=== PATIENT | male | born 1945 | race Caucasian/White ===

== ENCOUNTER 2016-07-21 17:17 | Inpatient (IN) | payer OTHER ==
[~2016-07-21] VITALS: Ht 167.6 cm; Wt 105.4 kg
--- NOTE | ~2016-07-21 | PR ---
[place], [place] PROGRESS NOTE NAME: JM MOSLEY I UNIT #: [id number] ROOM: 525 DOCTOR: BREANNE FIGUEROA DO BIRTHDATE: [birth year] DOS: 07/30/2016 DAILY REPORT NOTE SUBJECTIVE: A 71-year-old male seen at bedside today. He is status post I and D, washout and revision of right total hip. He does have a suspected deep infection, although his cultures today are negative. He had WBCs greater than 14,000 and clinically we are treating him regarding an infected right total hip. He has significantly improved since the time of surgery. He has had no additional development of redness. His pain has markedly improved. He has been ambulating the hallway. PHYSICAL EXAMINATION: VITAL SIGNS: Blood pressure 150/73, pulse rate 88, temp 98.8. INTERVAL HISTORY: The patient is pleasant, cooperative, alert. His sister is at the bedside. He tells me he did walk today. He earlier sat in the chair for about 2 hours and just sat at the bedside for his meal. Right hip incision showed pro intact. Marked improvement in cellulitic appearance and changes, some induration present. No drainage, no fluctuance, no evidence of hematoma or seroma. Thigh and calf nontender. Circulation, motor intact. LABORATORY DATA: Today's labs, WBC 12.4, hemoglobin 9.7, hematocrit 29.5, platelets 415,000. Glucose 169, creatinine 1.54, EGFR 45. Routine culture, final is negative. Anaerobic culture, final is negative. IMPRESSION: Infected right total hip arthroplasty. PLAN: Discussed with the patient plus plan of care. We are still suspecting deep infection based on the clinical presentation and surgical findings and with the fact that the patient had been on IV antibiotic treatment prior to cultures, I have discussed the case with ID. They did change his rifampin dose accordingly. He remains on IV antibiotic therapy, has his PICC line in place, pending long-term skilled/custodial placement for long-term IV antibiotic therapy. [place], [place] PROGRESS NOTE NAME: JM MOSLEY I UNIT #: [id number] ROOM: 525 DOCTOR: BREANNE FIGUEROA DO BIRTHDATE: [birth year] BREANNE FIGUEROA DO CM:PNTRANS [id number] BREANNE FIGUEROA DO 08/01/16 0029 interface
--- NOTE | ~2016-07-21 | PR ---
[place], [place] PROGRESS NOTE NAME: JM MOSLEY I UNIT #: [id number] ROOM: 525 DOCTOR: JORGE SAGE,JUNE BIRTHDATE: [birth year] DOS: 07/30/2016 SUBJECTIVE: The patient is being followed for possible right prosthetic joint infection. He has a right total hip replacement. All of his cultures including from the hip are negative. Blood cultures are also negative. He is alert and oriented, tolerating the antibiotics. Denies fevers, chills, nausea, vomiting or diarrhea. No rash or itch. No cough or shortness of breath. Does still have pain in the right hip. He has been afebrile. VITAL SIGNS: Showed temperature 98.8, pulse 88, respirations 20, BP 150/73. LABORATORY DATA: Show WBC is 12.4, platelets 415, eosinophils elevated at 10.1, BUN 19, creatinine has improved somewhat 1.54, sodium 141. LFTs within normal limits. Urine for eosinophils is pending. CURRENT MEDICATIONS: Include Ecotrin, linezolid, rifampin, [place], cefepime, vitamin D, Seroquel, Lipitor, Paxil, Zestril, Esidrix, Vistaril, Humalog, Zofran. PHYSICAL EXAMINATION: GENERAL: A 71-year-old obese male in no acute distress. HEAD, EYES, EARS, NOSE AND THROAT: Normocephalic, no thrush. LUNGS: Clear to auscultation bilaterally. Respirations even and unlabored. HEART: Regular rhythm. No murmur appreciated. ABDOMEN: Soft, nontender. EXTREMITIES: Right hip incision is well approximated. Scant cold bloody serosanguineous discharge. No odor or cellulitis. +2 to 3 edema bilateral lower extremities. PICC in place right upper extremity. Dressing dry and intact. 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 PLAN: At this point, we will continue the linezolid and cefepime. I would recommend changing him over daptomycin. Upon discharge, I did speak with the pharmacist here yesterday and it is not available inhouse. Continue rifampin as well. Case discussed with Dr. Tracy Gupta. Continue to monitor the creatinine and followup on the urine for eosinophils. The vancomycin was changed to linezolid due to a spike in the creatinine. JUNE CHU PATEL [place], [place] PROGRESS NOTE NAME: JM MOSLEY I UNIT #: [id number] ROOM: [facility] DOCTOR: JORGE SAGE BIRTHDATE: [birth year] TRACY GUPTA MD CM:PNTRANS [phone] JORGE SAGE 07/30/16 1849 interface
--- NOTE | ~2016-07-21 | PR ---
[place], [place] PROGRESS NOTE NAME: JM MOSLEY I UNIT #: [id number] ROOM: 525 DOCTOR: CANDY TOBIN,TRACY Gastelum BIRTHDATE: [birth year] DOS: 07/29/2016 ADDENDUM I agree with above plans as described. We will make adjustments and follow the patient up clinically. TRACY GUPTA MD CM:PNTRANS [phone] TRACY GUPTA MD 08/01/16 1532 interface
--- NOTE | ~2016-07-21 | PR ---
[place], [place] PROGRESS NOTE NAME: JM MOSLEY I UNIT #: [id number] ROOM: 525 DOCTOR: BREANNE FIGUEROA DO BIRTHDATE: [birth year] DOS: 07/26/2016 SUBJECTIVE: This 71-year-old male seen this morning regarding a followup right hip. I did see the patient the other day. As noted, he was evaluated and recommendations for continuation of IV antibiotic and planning washout i.e., I and D right hip with polyethylene exchange. The patient's condition has been stable, afebrile. Cultures are pending. PHYSICAL EXAMINATION: GENERAL: The patient is stable. VITAL SIGNS: Temp 98.4. No temp elevations. Blood pressure 117/60, pulse rate 86. EXTREMITIES: Right hip shows still induration and redness. There is improvement; however, there has been a scant area that is now opened through the mid portion of the incision showing scant amount of bloody serous drainage, nothing active at this time. Minimal fluctuance is present through this portion of the incision. Induration present. Thigh and calf nontender. LABORATORY DATA: WBC 10.6, hemoglobin 10.1, hematocrit 31.6, platelet 521,000. IMPRESSION: 1. Cellulitis, right hip, status post right total hip arthroplasty. 2. Draining postoperative wound, right hip. 3. Possible deep infection, right total hip arthroplasty. PLAN: We discussed with the patient plus plan of care again as noted. I discussed with the patient. I went ahead seen him 2 days ago regarding plan of care and treatment. At that time, I also discussed with him the procedure, benefits versus complications. He is aware of the procedure for washout polyethylene exchange, pending culture. The fluid analysis is previously noted; however, cultures again pending. He is maintained on vancomycin and Zosyn. I have discussed with the patient. Certainly, we will repeat intraoperative cultures today. If the patient ends up having a deep infection and after washout polyethylene exchange, if after a period of time the incision and wound does not improve or he persists with drainage, he may need explantation. This is explained in detail. He is aware that would require additional treatment, hospitalization, extended prison stay, IV antibiotics, etc., that would also require placement of a spacer, repeat additional surgeries. He does understand his condition may require multiple surgeries for resolution. He does understand medical risks and surgical risks including continued drainage, possible deep chronic infection, surgical bleeding, DVT, PE, nerve and artery damage, cardiorespiratory including from surgery. The patient will require a PICC line. We will continue to follow the patient closely. Obtain new cultures intraoperatively. The patient does understand failure risk and rate. He does also understand mechanical issues now that he is having another surgery or possible additional multiple surgeries regarding mechanical issues or problems within hip. After having answered his questions to his satisfaction, he does elect to proceed with surgery as recommended. Informed consent obtained. [place], [place] PROGRESS NOTE NAME: JM MOSLEY I UNIT #: [id number] ROOM: [facility] DOCTOR: BREANNE FIGUEROA DO BIRTHDATE: [birth year] BREANNE FIGUEROA DO CM:JESSENIA [id number] BREANNE FIGUEROA DO 07/27/16 0817 interface
--- NOTE | ~2016-07-21 | PR ---
[place], [place] PROGRESS NOTE NAME: JM MOSLEY I UNIT #: [id number] ROOM: 525 DOCTOR: BREANNE FIGUEROA DO BIRTHDATE: [birth year] DOS: 07/28/2016 SUBJECTIVE: This 71-year-old male seen at the bedside. He is status post washout and I and D and revision right hip for suspected deep infection. I did get a call from lab that initial cultures did show gram-positive cocci with ID pending. The patient has remained on antibiotic as noted per Medicine and Infectious Disease. Infectious Disease consult was appreciated. The patient's pain is improving, still at times moderate. He is out of bed walking. No fever or chills. PHYSICAL EXAMINATION: VITAL SIGNS: Blood pressure 133/50, pulse rate 88, temperature 98.3. GENERAL: The patient is pleasant, cooperative, alert, in no distress. EXTREMITIES: Right hip incision shows still some redness and erythema, but significantly improved since preop. [place] intact. Mild induration, but no fluctuance. No drainage from the incision site. Calf nontender. Circulation, motor intact. LABORATORY DATA: The patient's a.m. lab: WBC 11.1, hemoglobin 7.8, hematocrit 24.5. Glucose 244, creatinine 1.91, EGFR 35. Cultures pending. IMPRESSION: Infected right total hip arthroplasty. PLAN: Discussed with the patient clinical findings and plan of care. I did get a call from lab as noted with gram-positive cocci identified; however, final cultures are pending. I have discussed with nursing to please contact ID as I did add to the antibiotic regimen rifampin but do want to be sure that it is the appropriate dose. Also, he has postop blood loss anemia we will go ahead and type and cross and transfuse 2 units and plan for a long-term IV care and skilled treatment. ADDENDUM It was incorrectly stated that the patient had gram-positive cocci on his culture today. Those are negative and still pending. [place], [place] PROGRESS NOTE NAME: JM MOSLEY I UNIT #: [id number] ROOM: 525 DOCTOR: BREANNE FIGUEROA DO BIRTHDATE: [birth year] BREANNE FIGUEROA DO CM:PNDELMA [id number] BREANNE FIGUEROA DO 08/01/16 1540 interface
--- NOTE | ~2016-07-21 | PR ---
[place], [place] PROGRESS NOTE NAME: JM MOSLEY I UNIT #: [id number] ROOM: 525 DOCTOR: JORGE SAGEJUNE BIRTHDATE: [birth year] DOS: SUBJECTIVE: The patient is being followed for a right hip infection. He has a total hip arthroplasty in place. He is status post a washout. All of the cultures are negative. His blood cultures are also negative. He remains on cefepime, vancomycin and rifampin. He continues to have pain in the right hip. Denies any fevers, chills, nausea, vomiting or diarrhea. No cough or shortness of breath. No rash or itch. LABORATORY DATA: Show WBCs 10.7, platelets 392. BUN 24, creatinine 1.66, creatinine is up from 1.04, it was actually 0.96 at the time of admission, it has peaked at 1.91 yesterday. PHYSICAL EXAMINATION: VITAL SIGNS: Show temperature 97.7, pulse 71, respirations 20, BP 143/51. GENERAL: A 71-year-old male, in no acute distress. HEAD, EYES, EARS, NOSE AND THROAT: Normocephalic, no thrush. LUNGS: Clear to auscultation bilaterally. Respirations even and unlabored. HEART: Regular rhythm. No murmur appreciated. ABDOMEN: Soft, obese, nontender. EXTREMITIES: No edema. Right hip incision is well approximated with pro. It shows signs of resolving erythema, peeling skin. Skin is otherwise warm, dry and intact, free of rashes. PICC in the right upper extremity. Dressing is dry and intact. No signs of phlebitis. ASSESSMENT: Right hip infection with concern for possible prosthetic joint infection, status post washout with retention of the prosthesis. He is to continue the vancomycin and cefepime as well as rifampin; however, he does have elevation of his creatinine with more likely source being the vancomycin. We will check a urine for eosinophils. He does have some peripheral eosinophilia of 1.0 today. Change the vancomycin to daptomycin, monitor the metabolic panel and check urine for eosinophils. Case was discussed with Dr. Tracy Gupta. JUNE CHU PATEL [place], [place] PROGRESS NOTE NAME: JM MOSLEY I UNIT #: [id number] ROOM: [facility] DOCTOR: JORGE SAGE,JUNE BIRTHDATE: [birth year] TRACY GUPTA MD CM:JESSENIA [phone] JORGE SAGE 07/29/162021 interface
--- NOTE | ~2016-07-21 | O ---
[place], [place] OPERATIVE NOTE NAME: JM MOSLEY I UNIT #: [id number] ROOM: 525 DOCTOR: JONATHAN SHERIDAN DO BIRTHDATE: [birth year] DOS: 07/26/2016 PREOPERATIVE DIAGNOSES: 1. Wound drainage status post right total hip arthroplasty. 2. Cellulitis, right hip. POSTOPERATIVE DIAGNOSES: 1. Wound drainage status post right total hip arthroplasty. 2. Cellulitis, right hip. PROCEDURES: 1. Incision and drainage, right hip (skin, subcutaneous tissue, deep fascia, and muscle). 2. Revision right total hip arthroplasty. ANESTHESIA: General. SURGEON: Jonathan Sheridan DO ESTIMATED BLOOD LOSS: See operative report. SPECIMENS: Fluid culture. BED BUG EXTERMINATOR: Sivtlana Joshua. INDICATION FOR OPERATION: This is a 71-year-old male seen today in regards to cellulitic changes, right hip, with drainage. Please see consult and progress note regarding additional patient's clinical history, findings, and indications for procedure. A decision was for the above noted procedure as noted. Benefits, risks, complications were discussed with the patient. Informed consent obtained. DESCRIPTION OF PROCEDURE: With the patient being identified and the operative site marked, he was taken to the operative suite, transferred to position supine. He was administered a general anesthetic by the Department of Anesthesia. After adequate anesthetic, the patient was positioned in the lateral decubitus position, left side down, right hip up, down leg was padded, axillary roll was placed. There was just scant active drainage at this point after wiping with alcohol, and therefore prior to formal prepping and draping, did prep the surgical site, placed an Ioban, prepped the rest of the leg. At this point, we cared for with regular prepping and draping. A #10 blade was used to make a small stab incision through the area that had opened slightly. Copious amounts of fluid were suctioned. A 20 mL syringe was placed in fluid suction, placed into aerobic and anaerobic culture tube in sterile container, and sent for fluid analysis and culture. The remaining incision was opened up. Marked amount of fluid noted within the superficial and deep soft tissue. The fascia had opened up deep. There was no necrotic tissue, but all tissue was debrided including skin, subcutaneous tissue, fascia, and some muscle where there was quite a bit of fibrinous tissue deep and superficial. A curette was used to scrape the superficial subcutaneous fat and deeper tissue. Some of the [place], [place] OPERATIVE NOTE NAME: JM MOSLEY I UNIT #: [id number] ROOM: [facility] DOCTOR: CAROLINA WOLFFJONATHAN BIRTHDATE: [birth year] fascia at the very edge of the prior closure was cleaned up as well. Old sutures were removed. At this point, copious irrigation was done of the entire hip including deep hip. The remaining abductor tendon was opened up through its prior incision to expose the hip. The hip was dislocated by bringing the leg anterior in a sterile bag and bringing the ball far and the ball was removed. The acetabulum was exposed, and the polyethylene removed without interruption of the acetabular component. Copious irrigation at this point was done. We had used separate instrumentation at this point. All the gloves were changed, clean dressings placed over top including suction Bovie exchanged. At this point, Bactisure was used for copious irrigation followed by saline of the entire hip joint deep tissue and exposed portion of the trunnion of the femoral component and acetabular shell of the acetabular component. A new acetabular shell was placed in 6+3 high wall liner, impacted, found to be locked into place. Trial reductions were then done, and a 36+6 was found to have the best stability and equalization of limb length to the down leg. This showed low tendency for dislocation with the hip in the extended, adducted, externally rotated in the bag, abduction internal rotation with the hip flexed at 80 degrees showed a tight check with the posterior capsule, only about 45 degrees internal rotation noted. Trial component was dislocated and removed off the trunnion. The hip was copiously irrigated once again from the 36+3 ball placed on the trunnion impacted and reduced. Anatomic reduction was noted. The hip was very stable as previously tested. The hip was copiously irrigated. One gram of vancomycin powder was placed deep into the soft tissue and into the hip joint. A Hemovac drain was placed distal to the incision, and the hip was closed in layers. Abductor and vastus closed with #1 Vicryl. #1 Vicryl was used to close the tensor fascia latoya. #1 Vicryl was used to close also deep subcutaneous tissues to minimize the space. 3-0 Monocryl used for subcutaneous closure and por used on skin. Sterile dressing applied, Xeroform, 4 x 4s, ABD, and paper tape. The patient tolerated the procedure well. All sponge and needle counts were correct. The patient was transferred to hospital cart and to Recovery in stable and satisfactory condition. JONATHAN SHERIDAN DO CM:OPRECORD:OPERATIVE NOTE [id number] JONATHAN SHERIDAN DO 07/27/16 0847 interface
--- NOTE | ~2016-07-21 | PR ---
[place], [place] PROGRESS NOTE NAME: JM MOSLEY I UNIT #: [id number] ROOM: 525 DOCTOR: CANDY TOBIN,TRACY Gastelum BIRTHDATE: [birth year] DOS: 07/30/2016 I agree with the above plans as described and continue to follow the patient clinically and make adjustments accordingly. TRACY GUPTA MD CM:PNTRANS [phone] TRACY GUPTA MD 07/30/16 1854 interface
--- NOTE | ~2016-07-21 | CON ---
[place], [place] REPORT OF CONSULTATION NAME: JM MOSLEY I UNIT #: [id number] ROOM: 525 DOCTOR: BREANNE FIGUEROA DO BIRTHDATE: [birth year] DOS: 07/24/2016 Please include progress note today from ANTONY Osullivan as part of and inclusive of this consultation. HISTORY OF PRESENT ILLNESS: This is a 71-year-old male, 3 weeks status post right total hip arthroplasty. The patient was admitted to [facility] after having a fall at home. It was noted upon ER evaluation that he had induration, redness about the incision. There has been no drainage. He was admitted and placed on IV antibiotic. The patient did have a fall at home. However, x-rays and CT did not show any fracture. There was question of fluid collection subcutaneous within the region of the surgery at the right hip. There was no dislocation of the right hip prosthesis. Upon initial evaluation and admission, the patient's WBC was 15.2, hemoglobin 10.7, hematocrit 33.3. This has normalized to a CBC done on 07/23/2016 to 9.9 WBC. The patient has been afebrile. As noted, the patient was seen by ANTONY Osullivan earlier today. An aspirate was done consisting of bloody fluid that is noted. PHYSICAL EXAMINATION: VITAL SIGNS: Reviewed. Temperature 98.3, blood pressure 145/60, pulse rate 83. PELVIC: Right hip exam shows induration, erythema. There is no drainage from the incision. There is no fluctuance of the thigh. There is some peeling of the skin consistent with at least superficial cellulitic changes. Anterior medial thigh is nontender. Distal circulation intact. There is no shortening or malrotation of the limb. FLUID STUDIES: Fluid studies from today's aspirate, wbc 14,910 with 89% neutrophils, 5% lymphocytes. IMPRESSION: 1. Cellulitis, right hip. 2. Status post right total hip arthroplasty. PLAN: Plan was discussed with the patient plus plan of care. The total cell count is not definitive of infection; however, with the reference range of 10,000-27,000, I will have to certainly keep an eye on it or certainly if there is an area that starts to drain. At this time, the incision is closed. It still remains quite indurated. This may be from a postsurgical seroma; however, certainly there is a concern for superficial and/or deep underlying infection. I have discussed with the patient: I will see what the initial culture results are and make a decision regarding possible washout I and D or considering possible explantation and long-term antibiotic. The patient does understand and all of his questions have been answered. [place], [place] REPORT OF CONSULTATION NAME: MELANYJM HOLLINS B[place] UNIT #: [id number] ROOM: [facility] DOCTOR: BREANNE FIGUEROA DO BIRTHDATE: [birth year] BREANNE FIGUEROA DO CM:CONSTR:REPORT OF CONSULTATION 1542 07/25/16 0655 interface
[2016-07-21 17:21] VITALS: BP 147/73
[2016-07-21] MEDS ORDERED: PAROXETINE HCL40 MG PO (17:26)
[2016-07-21] MEDS ORDERED: METFORMIN1000 MG PO (17:27)
[2016-07-21] MEDS ORDERED: QUETIAPINE FUM200 M2 PO (17:27)
[2016-07-21] MEDS ORDERED: LISINOPRIL-HYDR1 TA1 PO (17:27)
[2016-07-21] MEDS ORDERED: VICODIN 5-3001 EACH PO (17:29)
[2016-07-21] MEDS ORDERED: HUMULIN R500 UNIT/1 SQ (17:30)
[2016-07-21] MEDS ORDERED: HYDROXYZINE HCL25 MG PO (17:31)
[2016-07-21] MEDS ORDERED: CEPHALEXIN500 M1 PO (17:31)
[2016-07-21] MEDS ORDERED: LIPITOR80 MG PO (17:32)
[2016-07-21 18:34] LABS: BASO % 0.3 % (0.0-1.0); EOS # 0.2 10*3/uL (0.0-0.4); EOS % 1.2 % (1.0-4.0); HEMATOCRIT 33.3 % (42.0-52.0); HEMOGLOBIN 10.7 g/dl (14.0-18.0); IG # 0.1 10*3/uL (0.0-0.1); LYMPH # 1.1 10*3/uL (1.3-4.4); LYMPH % 7.5 % (27.0-41.0); MEAN CELL VOLUME 84.7 fl (80.0-94.0); MEAN CORPUSCULAR HGB 27.2 pg (27.0-31.0); MEAN CORPUSCULAR HGB CONC 32.1 g/dl (33.0-37.0); MEAN PLATELET VOLUME 8.7 fl (9.6-12.3); MONO # 1.3 10*3/uL (0.1-1.0); MONO % 8.6 % (3.0-9.0); NEUT # 12.4 10*3/uL (2.3-7.9); NEUT % 81.9 % (47.0-73.0); PLATELET COUNT AUTOMATED 599 10*3/uL (130-400); RED BLOOD COUNT 3.93 10*6/uL (4.50-5.90); RED CELL DISTRI WIDTH 14.7 % (0-14.5); WHITE BLOOD COUNT 15.2 10*3/uL (4.8-10.8)
[2016-07-21 18:38] VITALS: BP 138/78
[2016-07-21 18:45] LABS: PROTHROMBIN TIME 10.7 SECONDS (9.0-12.4)
[2016-07-21 18:51] LABS: ALBUMIN 2.9 gm/dl (3.1-4.5); ALKALINE PHOSPHATASE 121 U/L (45-117); BILIRUBIN, TOTAL 1.3 mg/dl (0.2-1.0); BUN 28 mg/dl (7-24); CARBON DIOXIDE 28 mmol/L (21-32); CHLORIDE 103 mmol/L (98-107); CKMB 0.6 ng/ml (0.5-3.6); CPK 151 U/L (39-308); EST GLOM FILT AFRICAN AMERICAN > 60 ml/min; GLUCOSE 124 mg/dL (65-99); MAGNESIUM 2.2 mg/dL (1.5-2.1); POTASSIUM 4.5 mmol/L (3.5-5.1); SGOT/AST 13 IU/L (3-35); SGPT/ALT 24 U/L (12-78); SODIUM 139 mmol/L (136-145); TOTAL PROTEIN 7.3 gm/dL (6.4-8.2); TROPONIN I < 0.015 ng/ml (<0.045)
[2016-07-21 19:19] VITALS: BP 127/52
[2016-07-21 21:00] VITALS: BP 109/57
[2016-07-22 00:25] VITALS: BP 124/62
[2016-07-22 04:37] VITALS: BP 119/78
[2016-07-22 07:30] LABS: BASO # 0.1 10*3/uL (0.0-0.1); BASO % 0.4 % (0.0-1.0); EOS # 0.3 10*3/uL (0.0-0.4); HEMATOCRIT 31.7 % (42.0-52.0); IG # 0.1 10*3/uL (0.0-0.1); LYMPH # 0.8 10*3/uL (1.3-4.4); LYMPH % 6.4 % (27.0-41.0); MEAN CELL VOLUME 85.9 fl (80.0-94.0); MEAN CORPUSCULAR HGB 27.1 pg (27.0-31.0); MEAN CORPUSCULAR HGB CONC 31.5 g/dl (33.0-37.0); MEAN PLATELET VOLUME 8.8 fl (9.6-12.3); MONO # 1.3 10*3/uL (0.1-1.0); MONO % 10.1 % (3.0-9.0); NEUT # 10.4 10*3/uL (2.3-7.9); NEUT % 80.6 % (47.0-73.0); PLATELET COUNT AUTOMATED 600 10*3/uL (130-400); RED BLOOD COUNT 3.69 10*6/uL (4.50-5.90); RED CELL DISTRI WIDTH 14.7 % (0-14.5); WHITE BLOOD COUNT 12.9 10*3/uL (4.8-10.8)
[2016-07-22 07:50] LABS: HEMOGLOBIN A1c 6.7 % (4.8-5.6)
[2016-07-22 07:58] LABS: ALBUMIN 2.7 gm/dl (3.1-4.5); BILIRUBIN, TOTAL 1.3 mg/dl (0.2-1.0); BUN 23 mg/dl (7-24); CARBON DIOXIDE 28 mmol/L (21-32); CHLORIDE 105 mmol/L (98-107); CHOLESTEROL 101 mg/dL (<200); EST GLOM FILT AFRICAN AMERICAN > 60 ml/min; GLUCOSE 155 mg/dL (65-99); HDL CHOLESTEROL 36 mg/dl (40-60); LDL CHOLESTEROL 48 mg/dL (9-159); MAGNESIUM 1.9 mg/dL (1.5-2.1); PHOSPHOROUS 2.9 mg/dL (2.5-4.9); SGOT/AST 15 IU/L (3-35); SGPT/ALT 22 U/L (12-78); SODIUM 138 mmol/L (136-145); TRIGLYCERIDES 85 mg/dl (<150); VLDL CHOLESTEROL 17 mg/dL (6-40)
[2016-07-22 08:00] VITALS: BP 146/58
[2016-07-22 08:00] LABS: PROTHROMBIN TIME 10.7 SECONDS (9.0-12.4)
[2016-07-22 08:04] LABS: ALKALINE PHOSPHATASE 114 U/L (45-117); FREE T4 1.26 ng/dl (0.76-1.46); THYROID STIM HORMONE (HS) 0.782 uIU/ml (0.358-4.75)
[2016-07-22 08:06] LABS: VITAMIN D, 25-HYDROXY 6.7 ng/mL (30-100)
[2016-07-22 08:07] LABS: FOLIC ACID 14.63 ng/mL (>5.38)
[2016-07-22 12:00] VITALS: BP 121/74
[2016-07-22 16:00] VITALS: BP 146/80
[2016-07-22 17:06] LABS: BILIRUBIN NEGATIVE (NEGATIVE); BLOOD 1+ (NEGATIVE); CLARITY CLOUDY (CLEAR); COLOR YELLOW (YELLOW); GLUCOSE NEGATIVE (NEGATIVE); KETONE NEGATIVE (NEGATIVE); LEUKO ESTERASE TRACE (NEGATIVE); NITRITE NEGATIVE (NEGATIVE); PROTEIN TRACE (NEGATIVE); SPECIFIC GRAVITY 1.025 (1.005-1.030); UROBILINOGEN 0.2 E.U./dl (0.2-1.0)
[2016-07-22 17:25] LABS: BACTERIA 2+
[2016-07-22 17:26] LABS: URIC ACID CRYSTALS 3+
[2016-07-22 20:00] VITALS: BP 128/56
[2016-07-23 00:27] VITALS: BP 116/69
[2016-07-23 07:23] LABS: BASO # 0.1 10*3/uL (0.0-0.1); BASO % 0.5 % (0.0-1.0); EOS # 0.4 10*3/uL (0.0-0.4); EOS % 4.1 % (1.0-4.0); HEMATOCRIT 29.3 % (42.0-52.0); HEMOGLOBIN 9.3 g/dl (14.0-18.0); LYMPH % 9.7 % (27.0-41.0); MEAN CELL VOLUME 85.9 fl (80.0-94.0); MEAN CORPUSCULAR HGB 27.3 pg (27.0-31.0); MEAN CORPUSCULAR HGB CONC 31.7 g/dl (33.0-37.0); MEAN PLATELET VOLUME 8.7 fl (9.6-12.3); MONO % 10.2 % (3.0-9.0); NEUT # 7.4 10*3/uL (2.3-7.9); NEUT % 75.1 % (47.0-73.0); PLATELET COUNT AUTOMATED 459 10*3/uL (130-400); RED BLOOD COUNT 3.41 10*6/uL (4.50-5.90); RED CELL DISTRI WIDTH 14.8 % (0-14.5); WHITE BLOOD COUNT 9.9 10*3/uL (4.8-10.8)
[2016-07-23 07:49] LABS: BUN 17 mg/dl (7-24); CARBON DIOXIDE 28 mmol/L (21-32); CHLORIDE 108 mmol/L (98-107); EST GLOM FILT AFRICAN AMERICAN > 60 ml/min; GLUCOSE 178 mg/dL (65-99); POTASSIUM 3.9 mmol/L (3.5-5.1); SODIUM 142 mmol/L (136-145)
[2016-07-23 08:00] VITALS: BP 139/67
[2016-07-23 12:00] VITALS: BP 121/55
[2016-07-23 16:00] VITALS: BP 146/71
[2016-07-23 20:00] VITALS: BP 135/54
[2016-07-24] VITALS: BP 138/68
[2016-07-24 08:00] VITALS: BP 146/71
[2016-07-24 12:00] VITALS: BP 145/60
[2016-07-24 13:29] LABS: BODY FLUID RBC 75000 /uL
[2016-07-24 13:39] LABS: BODY FLUID TYPE SYNOVIAL; BODY FLUID WBC 14910 /uL
[2016-07-24 14:10] LABS: BF LYMPHOCYTES 5 %; BF MONOCYTES 6 %; BF NEUTROPHILS 89 %
[2016-07-24 16:00] VITALS: BP 111/51
[2016-07-24 20:06] VITALS: BP 144/54
[2016-07-25] VITALS: BP 130/60
[2016-07-25 07:40] LABS: BASO # 0.1 10*3/uL (0.0-0.1); BASO % 0.8 % (0.0-1.0); EOS # 0.8 10*3/uL (0.0-0.4); EOS % 8.5 % (1.0-4.0); HEMATOCRIT 29.7 % (42.0-52.0); HEMOGLOBIN 9.4 g/dl (14.0-18.0); IG # 0.1 10*3/uL (0.0-0.1); LYMPH # 1.1 10*3/uL (1.3-4.4); LYMPH % 12.7 % (27.0-41.0); MEAN CELL VOLUME 86.3 fl (80.0-94.0); MEAN CORPUSCULAR HGB 27.3 pg (27.0-31.0); MEAN CORPUSCULAR HGB CONC 31.6 g/dl (33.0-37.0); MEAN PLATELET VOLUME 8.7 fl (9.6-12.3); MONO # 0.8 10*3/uL (0.1-1.0); MONO % 9.2 % (3.0-9.0); NEUT # 6.1 10*3/uL (2.3-7.9); PLATELET COUNT AUTOMATED 509 10*3/uL (130-400); RED BLOOD COUNT 3.44 10*6/uL (4.50-5.90); RED CELL DISTRI WIDTH 14.6 % (0-14.5); WHITE BLOOD COUNT 8.9 10*3/uL (4.8-10.8)
[2016-07-25 07:58] LABS: ALBUMIN 2.6 gm/dl (3.1-4.5); ALKALINE PHOSPHATASE 110 U/L (45-117); BILIRUBIN, TOTAL 0.5 mg/dl (0.2-1.0); BUN 15 mg/dl (7-24); CARBON DIOXIDE 30 mmol/L (21-32); CHLORIDE 106 mmol/L (98-107); EST GLOM FILT AFRICAN AMERICAN > 60 ml/min; GLUCOSE 218 mg/dL (65-99); POTASSIUM 4.2 mmol/L (3.5-5.1); SGOT/AST 13 IU/L (3-35); SGPT/ALT 26 U/L (12-78); SODIUM 143 mmol/L (136-145); TOTAL PROTEIN 6.7 gm/dL (6.4-8.2)
[2016-07-25 08:00] VITALS: BP 136/65; BP 136/66
[2016-07-25 12:00] VITALS: BP 140/58
[2016-07-25 16:00] VITALS: BP 128/57
[2016-07-25 20:00] VITALS: BP 149/58
[2016-07-26] VITALS (11 sets, daily range): BP systolic 117–147; BP diastolic 50–76
[2016-07-26 07:12] LABS: BASO # 0.1 10*3/uL (0.0-0.1); BASO % 0.5 % (0.0-1.0); EOS # 0.9 10*3/uL (0.0-0.4); EOS % 8.8 % (1.0-4.0); HEMATOCRIT 31.6 % (42.0-52.0); IG # 0.1 10*3/uL (0.0-0.1); LYMPH # 1.3 10*3/uL (1.3-4.4); LYMPH % 12.3 % (27.0-41.0); MEAN CELL VOLUME 85.4 fl (80.0-94.0); MEAN CORPUSCULAR HGB CONC 31.6 g/dl (33.0-37.0); MEAN PLATELET VOLUME 8.8 fl (9.6-12.3); MONO # 0.9 10*3/uL (0.1-1.0); MONO % 8.5 % (3.0-9.0); NEUT # 7.3 10*3/uL (2.3-7.9); NEUT % 68.9 % (47.0-73.0); PLATELET COUNT AUTOMATED 521 10*3/uL (130-400); RED CELL DISTRI WIDTH 14.6 % (0-14.5); WHITE BLOOD COUNT 10.6 10*3/uL (4.8-10.8)
[2016-07-26 07:51] LABS: ALKALINE PHOSPHATASE 119 U/L (45-117); BILIRUBIN, TOTAL 0.7 mg/dl (0.2-1.0); BUN 17 mg/dl (7-24); CARBON DIOXIDE 28 mmol/L (21-32); CHLORIDE 103 mmol/L (98-107); EST GLOM FILT AFRICAN AMERICAN > 60 ml/min; GLUCOSE 203 mg/dL (65-99); POTASSIUM 3.9 mmol/L (3.5-5.1); SGOT/AST 15 IU/L (3-35); SGPT/ALT 26 U/L (12-78); SODIUM 140 mmol/L (136-145); TOTAL PROTEIN 7.3 gm/dL (6.4-8.2)
[2016-07-27] VITALS: BP 127/60
[2016-07-27 06:21] LABS: BASO # 0.1 10*3/uL (0.0-0.1); BASO % 0.5 % (0.0-1.0); EOS # 0.8 10*3/uL (0.0-0.4); EOS % 7.1 % (1.0-4.0); HEMATOCRIT 26.5 % (42.0-52.0); HEMOGLOBIN 8.3 g/dl (14.0-18.0); IG # 0.1 10*3/uL (0.0-0.1); LYMPH % 9.7 % (27.0-41.0); MEAN CELL VOLUME 87.5 fl (80.0-94.0); MEAN CORPUSCULAR HGB 27.4 pg (27.0-31.0); MEAN CORPUSCULAR HGB CONC 31.3 g/dl (33.0-37.0); MEAN PLATELET VOLUME 8.7 fl (9.6-12.3); MONO % 8.8 % (3.0-9.0); NEUT # 7.9 10*3/uL (2.3-7.9); NEUT % 72.8 % (47.0-73.0); PLATELET COUNT AUTOMATED 447 10*3/uL (130-400); RED BLOOD COUNT 3.03 10*6/uL (4.50-5.90); RED CELL DISTRI WIDTH 14.6 % (0-14.5); WHITE BLOOD COUNT 10.8 10*3/uL (4.8-10.8)
[2016-07-27 06:57] LABS: BUN 15 mg/dl (7-24); CARBON DIOXIDE 28 mmol/L (21-32); CHLORIDE 105 mmol/L (98-107); EST GLOM FILT AFRICAN AMERICAN > 60 ml/min; GLUCOSE 204 mg/dL (65-99); SODIUM 140 mmol/L (136-145)
[2016-07-27 08:00] VITALS: BP 98/54
[2016-07-27 12:00] VITALS: BP 110/56
[2016-07-27 16:00] VITALS: BP 107/52
[2016-07-27 20:00] VITALS: BP 129/57
[2016-07-28] VITALS (12 sets, daily range): BP systolic 127–146; BP diastolic 44–67
[2016-07-28 06:50] LABS: BASO % 0.3 % (0.0-1.0); EOS % 9.1 % (1.0-4.0); HEMATOCRIT 24.5 % (42.0-52.0); HEMOGLOBIN 7.8 g/dl (14.0-18.0); IG # 0.1 10*3/uL (0.0-0.1); LYMPH % 9.3 % (27.0-41.0); MEAN CELL VOLUME 86.9 fl (80.0-94.0); MEAN CORPUSCULAR HGB 27.7 pg (27.0-31.0); MEAN CORPUSCULAR HGB CONC 31.8 g/dl (33.0-37.0); MEAN PLATELET VOLUME 8.9 fl (9.6-12.3); MONO # 1.1 10*3/uL (0.1-1.0); MONO % 9.4 % (3.0-9.0); NEUT # 7.9 10*3/uL (2.3-7.9); NEUT % 70.6 % (47.0-73.0); PLATELET COUNT AUTOMATED 395 10*3/uL (130-400); RED BLOOD COUNT 2.82 10*6/uL (4.50-5.90); RED CELL DISTRI WIDTH 14.7 % (0-14.5); WHITE BLOOD COUNT 11.1 10*3/uL (4.8-10.8)
[2016-07-28 06:59] LABS: ALBUMIN 2.4 gm/dl (3.1-4.5); BILIRUBIN, TOTAL 0.5 mg/dl (0.2-1.0); POTASSIUM 3.7 mmol/L (3.5-5.1)
[2016-07-29] VITALS (11 sets, daily range): BP systolic 116–160; BP diastolic 40–94
[2016-07-29 06:15] LABS: BASO % 0.4 % (0.0-1.0); EOS % 9.6 % (1.0-4.0); HEMOGLOBIN 9.7 g/dl (14.0-18.0); IG # 0.2 10*3/uL (0.0-0.1); LYMPH # 1.4 10*3/uL (1.3-4.4); LYMPH % 12.9 % (27.0-41.0); MEAN CORPUSCULAR HGB 27.8 pg (27.0-31.0); MEAN CORPUSCULAR HGB CONC 32.3 g/dl (33.0-37.0); MEAN PLATELET VOLUME 8.6 fl (9.6-12.3); MONO % 9.7 % (3.0-9.0); NEUT # 7.1 10*3/uL (2.3-7.9); NEUT % 65.7 % (47.0-73.0); PLATELET COUNT AUTOMATED 392 10*3/uL (130-400); RED BLOOD COUNT 3.49 10*6/uL (4.50-5.90); RED CELL DISTRI WIDTH 14.7 % (0-14.5); WHITE BLOOD COUNT 10.7 10*3/uL (4.8-10.8)
[2016-07-29 06:27] LABS: POTASSIUM 3.8 mmol/L (3.5-5.1)
[2016-07-30] VITALS: BP 146/58
[2016-07-30 06:01] LABS: BASO # 0.1 10*3/uL (0.0-0.1); BASO % 0.4 % (0.0-1.0); EOS # 1.3 10*3/uL (0.0-0.4); EOS % 10.1 % (1.0-4.0); HEMATOCRIT 29.5 % (42.0-52.0); HEMOGLOBIN 9.7 g/dl (14.0-18.0); IG # 0.2 10*3/uL (0.0-0.1); LYMPH % 8.3 % (27.0-41.0); MEAN CELL VOLUME 85.3 fl (80.0-94.0); MEAN CORPUSCULAR HGB CONC 32.9 g/dl (33.0-37.0); MEAN PLATELET VOLUME 8.9 fl (9.6-12.3); MONO # 1.1 10*3/uL (0.1-1.0); MONO % 8.6 % (3.0-9.0); NEUT # 8.8 10*3/uL (2.3-7.9); NEUT % 71.4 % (47.0-73.0); PLATELET COUNT AUTOMATED 415 10*3/uL (130-400); RED BLOOD COUNT 3.46 10*6/uL (4.50-5.90); RED CELL DISTRI WIDTH 14.6 % (0-14.5); WHITE BLOOD COUNT 12.4 10*3/uL (4.8-10.8)
[2016-07-30 06:29] LABS: ALBUMIN 2.4 gm/dl (3.1-4.5); BILIRUBIN, TOTAL 1.2 mg/dl (0.2-1.0); TOTAL PROTEIN 6.5 gm/dL (6.4-8.2)
[2016-07-30 08:00] VITALS: BP 156/67
[2016-07-30 12:00] VITALS: BP 145/67
[2016-07-30 16:00] VITALS: BP 150/73
[2016-07-30 20:00] VITALS: BP 112/68; BP 90/56
[2016-07-31] VITALS: BP 132/61
[2016-07-31 06:02] LABS: BASO # 0.1 10*3/uL (0.0-0.1); BASO % 0.4 % (0.0-1.0); EOS # 1.1 10*3/uL (0.0-0.4); EOS % 9.1 % (1.0-4.0); HEMATOCRIT 30.1 % (42.0-52.0); HEMOGLOBIN 9.7 g/dl (14.0-18.0); IG # 0.1 10*3/uL (0.0-0.1); LYMPH # 1.2 10*3/uL (1.3-4.4); LYMPH % 10.2 % (27.0-41.0); MEAN CELL VOLUME 85.3 fl (80.0-94.0); MEAN CORPUSCULAR HGB 27.5 pg (27.0-31.0); MEAN CORPUSCULAR HGB CONC 32.2 g/dl (33.0-37.0); MEAN PLATELET VOLUME 8.9 fl (9.6-12.3); MONO # 1.1 10*3/uL (0.1-1.0); MONO % 9.2 % (3.0-9.0); NEUT # 8.4 10*3/uL (2.3-7.9); NEUT % 69.9 % (47.0-73.0); PLATELET COUNT AUTOMATED 422 10*3/uL (130-400); RED BLOOD COUNT 3.53 10*6/uL (4.50-5.90); RED CELL DISTRI WIDTH 14.6 % (0-14.5)
[2016-07-31 06:28] LABS: ALBUMIN 2.4 gm/dl (3.1-4.5); BILIRUBIN, TOTAL 0.5 mg/dl (0.2-1.0); POTASSIUM 3.9 mmol/L (3.5-5.1); TOTAL PROTEIN 6.5 gm/dL (6.4-8.2)
[2016-07-31 08:00] VITALS: BP 151/66
[2016-07-31 12:00] VITALS: BP 154/71
[2016-07-31 16:00] VITALS: BP 148/51
[2016-07-31 20:00] VITALS: BP 144/68
[2016-08-01] VITALS: BP 140/64
[2016-08-01 06:32] LABS: POTASSIUM 3.5 mmol/L (3.5-5.1)
[2016-08-01 06:35] LABS: VANCOMYCIN TROUGH 5.6 ug/mL (10-20)
[2016-08-01 06:36] LABS: BASO # 0.1 10*3/uL (0.0-0.1); BASO % 0.5 % (0.0-1.0); EOS % 9.1 % (1.0-4.0); HEMATOCRIT 32.3 % (42.0-52.0); HEMOGLOBIN 10.3 g/dl (14.0-18.0); IG # 0.1 10*3/uL (0.0-0.1); LYMPH # 1.1 10*3/uL (1.3-4.4); LYMPH % 10.3 % (27.0-41.0); MEAN CELL VOLUME 86.4 fl (80.0-94.0); MEAN CORPUSCULAR HGB 27.5 pg (27.0-31.0); MEAN CORPUSCULAR HGB CONC 31.9 g/dl (33.0-37.0); MEAN PLATELET VOLUME 9.1 fl (9.6-12.3); MONO # 0.9 10*3/uL (0.1-1.0); MONO % 8.4 % (3.0-9.0); NEUT # 7.7 10*3/uL (2.3-7.9); NEUT % 70.4 % (47.0-73.0); PLATELET COUNT AUTOMATED 489 10*3/uL (130-400); RED BLOOD COUNT 3.74 10*6/uL (4.50-5.90); RED CELL DISTRI WIDTH 14.6 % (0-14.5); WHITE BLOOD COUNT 10.9 10*3/uL (4.8-10.8)
[2016-08-01 08:00] VITALS: BP 147/61
[2016-08-01 12:00] VITALS: BP 120/77
[2016-08-01] MEDS ORDERED: CUBICIN RF500 MG IV (14:56)
[2016-08-01] MEDS ORDERED: Rimactane,Rifa300 MG PO (14:56)
[2016-08-01 16:00] VITALS: BP 125/54
[2016-08-01 20:00] VITALS: BP 134/51
[2016-08-02] VITALS: BP 149/63
[2016-08-02 06:42] LABS: BASO # 0.1 10*3/uL (0.0-0.1); BASO % 0.5 % (0.0-1.0); EOS # 0.9 10*3/uL (0.0-0.4); EOS % 8.2 % (1.0-4.0); HEMOGLOBIN 10.2 g/dl (14.0-18.0); IG # 0.2 10*3/uL (0.0-0.1); LYMPH # 1.1 10*3/uL (1.3-4.4); LYMPH % 10.3 % (27.0-41.0); MEAN CELL VOLUME 85.1 fl (80.0-94.0); MEAN CORPUSCULAR HGB 27.1 pg (27.0-31.0); MEAN CORPUSCULAR HGB CONC 31.9 g/dl (33.0-37.0); MEAN PLATELET VOLUME 8.5 fl (9.6-12.3); MONO # 0.9 10*3/uL (0.1-1.0); NEUT # 7.5 10*3/uL (2.3-7.9); NEUT % 71.2 % (47.0-73.0); PLATELET COUNT AUTOMATED 499 10*3/uL (130-400); RED BLOOD COUNT 3.76 10*6/uL (4.50-5.90); RED CELL DISTRI WIDTH 14.5 % (0-14.5); WHITE BLOOD COUNT 10.6 10*3/uL (4.8-10.8)
[2016-08-02 07:53] LABS: POTASSIUM 3.7 mmol/L (3.5-5.1)
[2016-08-02 08:00] VITALS: BP 138/54
[2016-08-02 12:00] VITALS: BP 123/60
[2016-08-02] MEDS ORDERED: D-1000 185 MG-11 TAB PO (14:26)
== END 2016-08-02 16:37 | disposition other institution (70) | DRG 466 ==
LOC: ED 17:17 → EDHOLD 19:53 → 5E 19:53
PROVIDERS: Emergency Medicine; Internal Medicine; Internal Medicine Hospice and Palliative Medicine; Orthopaedic Surgery; Physician Assistant
DX: T84.620A Infection and inflammatory reaction due to internal fixation device of right femur, initial encounter (principal); E43 Unspecified severe protein-calorie malnutrition; N17.0 Acute kidney failure with tubular necrosis; L03.115 Cellulitis of right lower limb; E11.9 Type 2 diabetes mellitus without complications; E78.5 Hyperlipidemia, unspecified; I10 Essential (primary) hypertension; J44.9 Chronic obstructive pulmonary disease, unspecified; D72.825 Bandemia; D64.9 Anemia, unspecified; E55.9 Vitamin D deficiency, unspecified; W01.0XXA Fall on same level from slipping, tripping and stumbling without subsequent striking against object, initial encounter; Y93.89 Activity, other specified; Y92.098 Other place in other non-institutional residence as the place of occurrence of the external cause; Y99.8 Other external cause status; Z90.49 Acquired absence of other specified parts of digestive tract; Z79.1 Long term (current) use of non-steroidal anti-inflammatories (NSAID); Z79.84 Long term (current) use of oral hypoglycemic drugs; Z79.899 Other long term (current) drug therapy; Z68.38 Body mass index [BMI] 38.0-38.9, adult

== ENCOUNTER 2016-08-09 17:17 | Emergency (ER) | payer OTHER ==
[~2016-08-09] VITALS: Ht 162.5 cm; Wt 106.1 kg
[~2016-08-09 17:17] MED LIST: CEPHALEXIN500 M1 PO; CUBICIN RF500 MG IV; D-1000 185 MG-11 TAB PO; HUMULIN R500 UNIT/1 SQ; HYDROXYZINE HCL25 MG PO; LIPITOR80 MG PO; LISINOPRIL-HYDR1 TA1 PO; METFORMIN1000 MG PO; PAROXETINE HCL40 MG PO; QUETIAPINE FUM200 M2 PO; Rimactane,Rifa300 MG PO; VICODIN 5-3001 EACH PO
[2016-08-09] MEDS ORDERED: KEFLEX 500 MG E2 CAP PO (17:41)
[2016-08-09] MEDS ORDERED: RIFADIN300 MG PO (17:41)
[2016-08-09 18:07] LABS: BASO # 0.1 10*3/uL (0.0-0.1); BASO % 0.6 % (0.0-1.0); EOS # 0.4 10*3/uL (0.0-0.4); EOS % 4.5 % (1.0-4.0); HEMATOCRIT 31.9 % (42.0-52.0); HEMOGLOBIN 10.3 g/dl (14.0-18.0); IG # 0.1 10*3/uL (0.0-0.1); LYMPH # 1.5 10*3/uL (1.3-4.4); LYMPH % 17.1 % (27.0-41.0); MEAN CORPUSCULAR HGB 27.8 pg (27.0-31.0); MEAN CORPUSCULAR HGB CONC 32.3 g/dl (33.0-37.0); MEAN PLATELET VOLUME 8.4 fl (9.6-12.3); MONO # 0.8 10*3/uL (0.1-1.0); MONO % 9.1 % (3.0-9.0); NEUT # 6.1 10*3/uL (2.3-7.9); PLATELET COUNT AUTOMATED 416 10*3/uL (130-400); RED BLOOD COUNT 3.71 10*6/uL (4.50-5.90); RED CELL DISTRI WIDTH 14.3 % (0-14.5); WHITE BLOOD COUNT 8.9 10*3/uL (4.8-10.8)
[2016-08-09 18:18] LABS: PROTHROMBIN TIME 10.5 SECONDS (9.0-12.4)
[2016-08-09 18:24] LABS: ALKALINE PHOSPHATASE 165 U/L (45-117); BILIRUBIN, TOTAL 0.4 mg/dl (0.2-1.0); BUN 20 mg/dl (7-24); CARBON DIOXIDE 27 mmol/L (21-32); CHLORIDE 103 mmol/L (98-107); EST GLOM FILT AFRICAN AMERICAN > 60 ml/min; GLUCOSE 93 mg/dL (65-99); MAGNESIUM 1.8 mg/dL (1.5-2.1); POTASSIUM 4.3 mmol/L (3.5-5.1); SGOT/AST 10 IU/L (3-35); SGPT/ALT 16 U/L (12-78); SODIUM 139 mmol/L (136-145)
[2016-08-09 18:25] LABS: TROPONIN I < 0.015 ng/ml (<0.045)
[2016-08-09 19:10] LABS: BILIRUBIN NEGATIVE (NEGATIVE); BLOOD NEGATIVE (NEGATIVE); CLARITY CLEAR (CLEAR); COLOR YELLOW (YELLOW); GLUCOSE NEGATIVE (NEGATIVE); KETONE NEGATIVE (NEGATIVE); LEUKO ESTERASE TRACE (NEGATIVE); NITRITE NEGATIVE (NEGATIVE); PH 6.5 (5.0-9.0); PROTEIN TRACE (NEGATIVE); SPECIFIC GRAVITY <= 1.005 (1.005-1.030); UROBILINOGEN 0.2 E.U./dl (0.2-1.0)
[2016-08-09 19:25] LABS: BACTERIA 1+; EPITHELIAL CELLS 0-2; HYALINE CAST 0-2
[2016-08-09 19:26] LABS: URINE REFLEX COMMENT YES (NO)
[2016-08-09] MEDS ORDERED: Zofran4 MG PO (19:51)
[2016-08-09 20:05] LABS: LA>2 REFLEX 2 HR DRAW NOW
== END 2016-08-09 20:12 | disposition home or self-care (01) ==
LOC: ED 17:17
PROVIDERS: Student in an Organized Health Care Education/Training Program
DX: R19.7 Diarrhea, unspecified (principal); R11.0 Nausea; E86.0 Dehydration; Z79.899 Other long term (current) drug therapy; J44.9 Chronic obstructive pulmonary disease, unspecified; I10 Essential (primary) hypertension; E11.9 Type 2 diabetes mellitus without complications; E78.5 Hyperlipidemia, unspecified; Z90.49 Acquired absence of other specified parts of digestive tract; Z98.890 Other specified postprocedural states

== ENCOUNTER 2016-08-18 10:12 | Emergency (ER) | payer OTHER ==
[~2016-08-18] VITALS: Wt 106.1 kg
[~2016-08-18 10:12] MED LIST changes: +KEFLEX 500 MG E2 CAP PO; +RIFADIN300 MG PO; +Zofran4 MG PO
== END 2016-08-18 12:19 | disposition home or self-care (01) ==
LOC: ED 10:12
DX: T82.898A Other specified complication of vascular prosthetic devices, implants and grafts, initial encounter (principal); J44.9 Chronic obstructive pulmonary disease, unspecified; I10 Essential (primary) hypertension; E78.5 Hyperlipidemia, unspecified; E11.9 Type 2 diabetes mellitus without complications; E55.9 Vitamin D deficiency, unspecified; Z90.49 Acquired absence of other specified parts of digestive tract; Z98.890 Other specified postprocedural states; Z96.641 Presence of right artificial hip joint; Z79.899 Other long term (current) drug therapy; Y92.9 Unspecified place or not applicable

== ENCOUNTER 2016-08-27 10:01 | Emergency (ER) | payer OTHER | END 2016-08-27 13:17 | disposition home or self-care (01) | LOC: ED 10:01 | DX: T82.898A Other specified complication of vascular prosthetic devices, implants and grafts, initial encounter (principal); R06.02 Shortness of breath; R06.2 Wheezing; L53.8 Other specified erythematous conditions; I10 Essential (primary) hypertension; J44.9 Chronic obstructive pulmonary disease, unspecified; E11.9 Type 2 diabetes mellitus without complications; Z79.4 Long term (current) use of insulin; E78.5 Hyperlipidemia, unspecified; Z87.891 Personal history of nicotine dependence; Z96.641 Presence of right artificial hip joint; Z79.899 Other long term (current) drug therapy ==

== ENCOUNTER → 2016-08-28 | Day surgery (SDC) | payer OTHER ==
[2016-08-28 11:25] VITALS: BP 136/78
== END ==
LOC: SDC 02:24
DX: M00.9 Pyogenic arthritis, unspecified (principal); I10 Essential (primary) hypertension; E11.9 Type 2 diabetes mellitus without complications

== ENCOUNTER 2016-10-24 21:46 | Inpatient (IN) | payer OTHER ==
[~2016-10-24] VITALS: Ht 167.6 cm; Wt 104.3 kg
[2016-10-24 21:49] VITALS: BP 136/80
[2016-10-24 22:39] LABS: BASO % 0.3 % (0.0-1.0); EOS # 0.1 10*3/uL (0.0-0.4); EOS % 0.4 % (1.0-4.0); HEMATOCRIT 37.5 % (42.0-52.0); HEMOGLOBIN 12.1 g/dl (14.0-18.0); LYMPH % 6.5 % (27.0-41.0); MEAN CELL VOLUME 85.8 fl (80.0-94.0); MEAN CORPUSCULAR HGB 27.7 pg (27.0-31.0); MEAN CORPUSCULAR HGB CONC 32.3 g/dl (33.0-37.0); MEAN PLATELET VOLUME 8.9 fl (9.6-12.3); MONO # 0.6 10*3/uL (0.1-1.0); MONO % 3.9 % (3.0-9.0); NEUT # 13.5 10*3/uL (2.3-7.9); NEUT % 88.3 % (47.0-73.0); PLATELET COUNT AUTOMATED 352 10*3/uL (130-400); RED BLOOD COUNT 4.37 10*6/uL (4.50-5.90); RED CELL DISTRI WIDTH 16.7 % (0-14.5); WHITE BLOOD COUNT 15.3 10*3/uL (4.8-10.8)
[2016-10-24 22:43] LABS: BILIRUBIN NEGATIVE (NEGATIVE); BLOOD TRACE-LYSED (NEGATIVE); CLARITY CLEAR (CLEAR); COLOR YELLOW (YELLOW); GLUCOSE NEGATIVE (NEGATIVE); KETONE TRACE (NEGATIVE); LEUKO ESTERASE NEGATIVE (NEGATIVE); NITRITE NEGATIVE (NEGATIVE); PH 5.5 (5.0-9.0); SPECIFIC GRAVITY >= 1.030 (1.005-1.030); UROBILINOGEN 0.2 E.U./dl (0.2-1.0)
[2016-10-24 22:56] LABS: ALBUMIN 3.8 gm/dl (3.1-4.5); ALKALINE PHOSPHATASE 136 U/L (45-117); BUN 26 mg/dl (7-24); CHLORIDE 107 mmol/L (98-107); CREATININE 1.18 mg/dL (0.70-1.30); LIPASE 189 U/L (73-393); MAGNESIUM 1.7 mg/dL (1.5-2.1); POTASSIUM 4.7 mmol/L (3.5-5.1); SGOT/AST 13 IU/L (3-35); SGPT/ALT 27 U/L (12-78); SODIUM 139 mmol/L (136-145); TOTAL PROTEIN 7.7 gm/dL (6.4-8.2)
[2016-10-24 22:56] LABS: URIC ACID CRYSTALS 3+
[2016-10-24 22:57] LABS: BACTERIA TRACE
[2016-10-24 22:58] LABS: TROPONIN I < 0.015 ng/ml (<0.045)
[2016-10-25 02:00] VITALS: BP 133/76
[2016-10-25] MEDS ORDERED: RIFADIN300 MG PO (02:35)
[2016-10-25 06:20] LABS: BASO % 0.4 % (0.0-1.0); EOS # 0.2 10*3/uL (0.0-0.4); EOS % 1.6 % (1.0-4.0); HEMOGLOBIN 11.4 g/dl (14.0-18.0); LYMPH # 2.1 10*3/uL (1.3-4.4); LYMPH % 21.3 % (27.0-41.0); MEAN CELL VOLUME 87.5 fl (80.0-94.0); MEAN CORPUSCULAR HGB 28.5 pg (27.0-31.0); MEAN CORPUSCULAR HGB CONC 32.6 g/dl (33.0-37.0); MEAN PLATELET VOLUME 9.3 fl (9.6-12.3); MONO # 0.8 10*3/uL (0.1-1.0); NEUT # 6.7 10*3/uL (2.3-7.9); NEUT % 68.2 % (47.0-73.0); PLATELET COUNT AUTOMATED 340 10*3/uL (130-400); WHITE BLOOD COUNT 9.8 10*3/uL (4.8-10.8)
[2016-10-25 06:45] LABS: ACT PARTIAL THROMBO TIME 24.7 SECONDS (20.8-31.5); BUN 20 mg/dl (7-24); CHLORIDE 107 mmol/L (98-107); CHOLESTEROL 106 mg/dL (<200); CREATININE 1.03 mg/dL (0.70-1.30); HDL CHOLESTEROL 38 mg/dl (40-60); LDL CHOLESTEROL 40 mg/dL (9-159); MAGNESIUM 1.7 mg/dL (1.5-2.1); PHOSPHOROUS 3.6 mg/dL (2.5-4.9); POTASSIUM 4.5 mmol/L (3.5-5.1); SODIUM 142 mmol/L (136-145); TRIGLYCERIDES 140 mg/dl (<150); VLDL CHOLESTEROL 28 mg/dL (6-40)
[2016-10-25 06:53] LABS: THYROID STIM HORMONE (HS) 0.829 uIU/ml (0.358-4.75)
[2016-10-25 07:21] LABS: VITAMIN D, 25-HYDROXY 28.6 ng/mL (30-100)
[2016-10-25 08:00] VITALS: BP 130/66
[2016-10-25 12:00] VITALS: BP 138/61
[2016-10-25 16:00] VITALS: BP 95/52
[2016-10-26] VITALS: BP 113/56
[2016-10-26 06:19] LABS: BASO % 0.6 % (0.0-1.0); EOS # 0.2 10*3/uL (0.0-0.4); EOS % 3.2 % (1.0-4.0); HEMATOCRIT 32.8 % (42.0-52.0); HEMOGLOBIN 10.5 g/dl (14.0-18.0); LYMPH # 1.9 10*3/uL (1.3-4.4); LYMPH % 25.9 % (27.0-41.0); MEAN CELL VOLUME 87.7 fl (80.0-94.0); MEAN CORPUSCULAR HGB 28.1 pg (27.0-31.0); MEAN PLATELET VOLUME 9.4 fl (9.6-12.3); MONO # 0.5 10*3/uL (0.1-1.0); MONO % 7.4 % (3.0-9.0); NEUT # 4.5 10*3/uL (2.3-7.9); NEUT % 62.5 % (47.0-73.0); PLATELET COUNT AUTOMATED 290 10*3/uL (130-400); RED BLOOD COUNT 3.74 10*6/uL (4.50-5.90); RED CELL DISTRI WIDTH 16.8 % (0-14.5); WHITE BLOOD COUNT 7.1 10*3/uL (4.8-10.8)
[2016-10-26 06:28] LABS: ALBUMIN 3.1 gm/dl (3.1-4.5); BUN 12 mg/dl (7-24); CHLORIDE 109 mmol/L (98-107); CREATININE 0.87 mg/dL (0.70-1.30); POTASSIUM 3.9 mmol/L (3.5-5.1); SGOT/AST 10 IU/L (3-35); SGPT/ALT 21 U/L (12-78); SODIUM 142 mmol/L (136-145)
[2016-10-26 06:29] LABS: ALKALINE PHOSPHATASE 123 U/L (45-117); TOTAL PROTEIN 6.1 gm/dL (6.4-8.2)
[2016-10-26 08:00] VITALS: BP 122/86
[2016-10-26] MEDS ORDERED: NORCO 5/325 PO (13:43)
[2016-10-26] MEDS ORDERED: NORCO 5-325 TA1 EACH PO (14:36)
== END 2016-10-26 16:44 | disposition home or self-care (01) | DRG 394 ==
LOC: ED 21:46 → 5E 10-25 00:56
PROVIDERS: Emergency Medicine Emergency Medical Services; Internal Medicine; Internal Medicine Hospice and Palliative Medicine; ADMIT Emergency Medicine
DX: K42.9 Umbilical hernia without obstruction or gangrene (principal); E87.2 Acidosis; J44.9 Chronic obstructive pulmonary disease, unspecified; E11.9 Type 2 diabetes mellitus without complications; I10 Essential (primary) hypertension; D72.829 Elevated white blood cell count, unspecified; E78.5 Hyperlipidemia, unspecified; Z96.641 Presence of right artificial hip joint; K40.90 Unilateral inguinal hernia, without obstruction or gangrene, not specified as recurrent; Z90.49 Acquired absence of other specified parts of digestive tract; Z79.4 Long term (current) use of insulin; Z79.84 Long term (current) use of oral hypoglycemic drugs; Z79.899 Other long term (current) drug therapy

== ENCOUNTER → 2016-11-10 | Outpatient (CLI) | payer OTHER ==
[~2016-11-10] MED LIST changes: +MYLICON, MYLANT80 MG PO; +NORCO 5-325 TA1 EACH PO; +NORCO 5/325 PO; +NOVOLIN 70100 UNIT/1 SC; +PEPTO-BISMOL262 M1 PO; +TYLENOL325 M2 PO
[2016-11-10 09:25] LABS: BASO # 0.1 10*3/uL (0.0-0.1); BASO % 0.7 % (0.0-1.0); EOS # 0.4 10*3/uL (0.0-0.4); EOS % 3.1 % (1.0-4.0); HEMATOCRIT 44.6 % (42.0-52.0); HEMOGLOBIN 14.2 g/dl (14.0-18.0); LYMPH # 1.9 10*3/uL (1.3-4.4); LYMPH % 15.5 % (27.0-41.0); MEAN CELL VOLUME 86.9 fl (80.0-94.0); MEAN CORPUSCULAR HGB 27.7 pg (27.0-31.0); MEAN CORPUSCULAR HGB CONC 31.8 g/dl (33.0-37.0); MEAN PLATELET VOLUME 8.9 fl (9.6-12.3); MONO % 8.1 % (3.0-9.0); NEUT # 8.7 10*3/uL (2.3-7.9); NEUT % 71.9 % (47.0-73.0); PLATELET COUNT AUTOMATED 493 10*3/uL (130-400); RED BLOOD COUNT 5.13 10*6/uL (4.50-5.90); RED CELL DISTRI WIDTH 16.4 % (0-14.5); WHITE BLOOD COUNT 12.2 10*3/uL (4.8-10.8)
[2016-11-10 09:43] LABS: BILIRUBIN NEGATIVE (NEGATIVE); BLOOD NEGATIVE (NEGATIVE); CLARITY CLEAR (CLEAR); COLOR YELLOW (YELLOW); GLUCOSE NEGATIVE (NEGATIVE); KETONE NEGATIVE (NEGATIVE); LEUKO ESTERASE NEGATIVE (NEGATIVE); NITRITE NEGATIVE (NEGATIVE); SPECIFIC GRAVITY 1.025 (1.005-1.030); UROBILINOGEN 0.2 E.U./dl (0.2-1.0)
[2016-11-10 09:50] LABS: BACTERIA TRACE; MUCOUS 1+
[2016-11-10 09:54] LABS: BUN 17 mg/dl (7-24); CHLORIDE 101 mmol/L (98-107); CREATININE 1.25 mg/dL (0.70-1.30); SODIUM 136 mmol/L (136-145)
== END | disposition home or self-care (01) ==
LOC: LAB 07:33
PROVIDERS: Surgery
DX: Z01.818 Encounter for other preprocedural examination (principal); K40.90 Unilateral inguinal hernia, without obstruction or gangrene, not specified as recurrent; I10 Essential (primary) hypertension; E11.9 Type 2 diabetes mellitus without complications; J44.9 Chronic obstructive pulmonary disease, unspecified; Z79.01 Long term (current) use of anticoagulants

== ENCOUNTER → 2016-12-07 | Day surgery (SDC) | payer OTHER ==
[~2016-12-07] VITALS: Ht 162.5 cm; Wt 100.2 kg
[2016-12-07] VITALS (8 sets, daily range): BP systolic 123–154; BP diastolic 57–81
--- NOTE | ~2016-12-07 | O ---
[place], [place] OPERATIVE NOTE NAME: JM MOSLEY I UNIT #: [id number] ROOM: DOCTOR: CHAD FARMER MD BIRTHDATE: [birth year] DOS: 12/07/2016 PREOPERATIVE DIAGNOSES: Right inguinal hernia, umbilical hernia. POSTOPERATIVE DIAGNOSES: Right inguinal hernia, umbilical hernia. PROCEDURE: Right inguinal hernia repair with plug and mesh, umbilical hernia repair (primary). SURGEON: Chad Farmer M.D. PLASTIC SURGERY MANAGER: SANDRA. ANESTHESIA: General with endotracheal intubation. INDICATIONS: This is a 71-year-old gentleman with a history of a right inguinal hernia and an umbilical hernia, both of which are symptomatic, who is here for the above-mentioned procedure. The procedure and its complications were explained to the patient in detail. Complications that were discussed included, but were not limited to bleeding, infection, hematoma/seroma/abscess formation, prolonged postoperative pain, damage to underlying vital structures and recurrence and he agreed to proceed. DESCRIPTION OF PROCEDURE: After identifying the patient, the patient was brought to the operating suite and laid in the supine position. After induction of general anesthesia, the parts were painted and draped in the usual sterile fashion and a timeout procedure was called and decided to proceed with the right inguinal hernia first. An incision was marked in the right groin parallel to the right inguinal ligament. The skin and the subcutaneous tissue were incised. The external oblique aponeurosis, which was very attenuated, was incised as well. There was found to be a pantaloon kind of hernia. There was a large direct hernia, which had lot of adhesions from his chronicity to the surrounding structures. These were taken down with the help of blunt and sharp dissection and the entire hernial sac was allowed to retract back into the peritoneal cavity. There was also found to be a smaller hernial sac, which originated from the internal ring and was around the cord structures. These cord structures were carefully dissected away from the hernial sac and the hernial sac itself was then excised along with the cord lipoma and sent for histopathological diagnosis: Large light Prolene plug was placed over the internal ring and sutured to the upturned part of the inguinal ligament and the conjoined tendon superiorly. Please make note of the fact that most of the tissues were very fatty and attenuated and very weak tissue were found to be around the groin and therefore, plug was deemed to be the most appropriate for repair at this time. In order to get better repair of the floor of the inguinal canal, large mesh was brought in and was sutured to the upturned part of the inguinal ligament and the conjoined tendon with the help of 3-0 Prolene in an interrupted fashion. Thereafter, the external oblique aponeurosis was approximated with the help of 0 Vicryl in a running fashion and the skin edges were approximated with the help of 4-0 Vicryl in a subcuticular running fashion after the edges were infiltrated with 1% plain lidocaine. Attention was then turned towards the umbilicus. [place], [place] OPERATIVE NOTE NAME: JM MOSLEY I UNIT #: [id number] ROOM: DOCTOR: CHAD FARMER MD BIRTHDATE: [birth year] curvilinear incision was made in the inferior part of the umbilicus, the skin and the subcutaneous tissue were incised. The hernial sac was identified and opened and was found to contain omentum. These omental adhesions were then incised and the sac was excised in its entirety and sent for histopathological diagnosis; thereafter, the size of the defect was measured which was less than 0.5 cm and therefore, a primary repair was performed with the help of [id number] 0 PDS in an interrupted fashion. After that was done, the edges of the skin were infiltrated with 1% plain lidocaine and were approximated with the help of 4-0 Vicryl in a subcuticular running fashion. Dressings were placed. The patient tolerated the procedure well and was extubated uneventfully and brought back to the recovery room in stable fashion. There were no complications. Dr. Chad Farmer, the attending surgeon, was present throughout the operating case. Chad Farmer MD CM:OPRECORD:OPERATIVE NOTE [id number] CHAD FARMER MD 12/07/16 1127 interface
[2016-12-07 07:14] LABS: BASO % 0.5 % (0.0-1.0); EOS # 0.4 10*3/uL (0.0-0.4); EOS % 5.1 % (1.0-4.0); HEMATOCRIT 39.4 % (42.0-52.0); HEMOGLOBIN 12.6 g/dl (14.0-18.0); LYMPH # 1.1 10*3/uL (1.3-4.4); LYMPH % 12.2 % (27.0-41.0); MEAN CELL VOLUME 85.8 fl (80.0-94.0); MEAN CORPUSCULAR HGB 27.5 pg (27.0-31.0); MEAN PLATELET VOLUME 9.3 fl (9.6-12.3); MONO # 0.8 10*3/uL (0.1-1.0); MONO % 9.5 % (3.0-9.0); NEUT # 6.2 10*3/uL (2.3-7.9); NEUT % 72.1 % (47.0-73.0); PLATELET COUNT AUTOMATED 305 10*3/uL (130-400); RED BLOOD COUNT 4.59 10*6/uL (4.50-5.90); WHITE BLOOD COUNT 8.6 10*3/uL (4.8-10.8)
[2016-12-07 07:29] LABS: ALBUMIN 3.3 gm/dl (3.1-4.5); ALKALINE PHOSPHATASE 183 U/L (45-117); BUN 17 mg/dl (7-24); CHLORIDE 106 mmol/L (98-107); CREATININE 0.92 mg/dL (0.70-1.30); POTASSIUM 3.3 mmol/L (3.5-5.1); SGOT/AST 20 IU/L (3-35); SGPT/ALT 29 U/L (12-78); SODIUM 141 mmol/L (136-145); TOTAL PROTEIN 7.4 gm/dL (6.4-8.2)
== END | disposition home or self-care (01) ==
LOC: SDC 11-30 09:30
PROVIDERS: Surgery
DX: K42.9 Umbilical hernia without obstruction or gangrene (principal); K40.90 Unilateral inguinal hernia, without obstruction or gangrene, not specified as recurrent; I10 Essential (primary) hypertension; J44.9 Chronic obstructive pulmonary disease, unspecified; K21.9 Gastro-esophageal reflux disease without esophagitis; F41.9 Anxiety disorder, unspecified; F32.9 Major depressive disorder, single episode, unspecified; Z87.891 Personal history of nicotine dependence; Z98.890 Other specified postprocedural states; E11.9 Type 2 diabetes mellitus without complications; Z82.49 Family history of ischemic heart disease and other diseases of the circulatory system

== ENCOUNTER → 2016-12-29 | Outpatient (CLI) | payer OTHER | END | disposition home or self-care (01) | LOC: LAB 09:55 | DX: T84.51XA Infection and inflammatory reaction due to internal right hip prosthesis, initial encounter (principal) ==